=== PATIENT | male | born 1965 | race Caucasian/White ===

== ENCOUNTER 2021-05-03 01:34 | Emergency (ER) | payer SELFPAY ==
[~2021-05-03] VITALS: Ht 177.8 cm; Wt 72.7 kg
[2021-05-03 03:54] VITALS: BP 117/74
[2021-05-03] MEDS ORDERED: INHA1INH2 INH (05:08)
[2021-05-03] MEDS ORDERED: ALBU18HF2 INH (05:08)
== END 2021-05-03 05:30 | disposition home or self-care (01) ==
LOC: ER 01:36
DX: J45.909 Unspecified asthma, uncomplicated (principal); Z76.0 Encounter for issue of repeat prescription; M19.90 Unspecified osteoarthritis, unspecified site
CPT/HCPCS: 99284

== ENCOUNTER 2021-05-07 17:51 | Emergency (ER) | payer MEDICARE, OTHER ==
[~2021-05-07] VITALS: Ht 177.8 cm; Wt 85.7 kg
[~2021-05-07 17:51] MED LIST: ALBU18HF2 INH; INHA1INH2 INH
[2021-05-07 18:06] VITALS: BP 143/71
[2021-05-08] MEDS ORDERED: ALBU8HFA PO (03:03)
== END 2021-05-08 06:41 | disposition home or self-care (01) ==
LOC: ER 17:52
DX: Z13.89 Encounter for screening for other disorder (principal); R06.02 Shortness of breath; H92.02 Otalgia, left ear; I25.10 Atherosclerotic heart disease of native coronary artery without angina pectoris; J45.909 Unspecified asthma, uncomplicated; Z86.73 Personal history of transient ischemic attack (TIA), and cerebral infarction without residual deficits; M19.90 Unspecified osteoarthritis, unspecified site; Z59.00 Homelessness unspecified; Z79.899 Other long term (current) drug therapy
CPT/HCPCS: 99283

== ENCOUNTER 2021-05-08 20:24 | Emergency (ER) | payer MEDICARE, OTHER ==
[~2021-05-08] VITALS: Ht 175.3 cm; Wt 64.0 kg
[~2021-05-08 20:24] MED LIST changes: +ALBU8HFA PO
[2021-05-08 23:37] VITALS: BP 138/72
== END 2021-05-08 23:41 | disposition home or self-care (01) ==
LOC: ER 20:30
DX: Z02.89 Encounter for other administrative examinations (principal); R45.1 Restlessness and agitation; I25.10 Atherosclerotic heart disease of native coronary artery without angina pectoris; J45.909 Unspecified asthma, uncomplicated; Z86.73 Personal history of transient ischemic attack (TIA), and cerebral infarction without residual deficits; Z59.00 Homelessness unspecified; Z79.899 Other long term (current) drug therapy
CPT/HCPCS: 99281